=== PATIENT | female | born 1975 | race Caucasian/White ===

== ENCOUNTER 2017-03-19 09:57 | Emergency (ER) | payer BC ==
[2017-03-19] MEDS ORDERED: NS 0.9% 1000 ML* 1,000 ML IV SCH (10:15)
[2017-03-19 11:00] LABS: Hematocrit 39 % (35-47); Hemoglobin 13.1 g/dl (12.0-16.0); Mean Corpuscular HGB Conc 34 g/dl (31-36); Mean Corpuscular Hemoglobin 29 pg (27-31); Mean Corpuscular Volume 86 fL (80-97); Mean Platelet Volume 7 um3 (7.4-10.4); Red Blood Count 4.52 10^6/ul (4.0-5.4); Red Cell Distribution Width 15 % (10.5-15); White Blood Count 7.8 10^3/ul (3.5-10.8)
[2017-03-19] MEDS ORDERED: NS 0.9% 1000 ML* 2,000 ML IV ONE (11:13)
[2017-03-19 11:17] LABS: ALT 18 U/L (7-52); Albumin 3.8 g/dL (3.2-5.2); Alkaline Phosphatase 56 U/L (34-104); BUN/Creatinine Ratio 15.1 (8-20); Blood Urea Nitrogen 14 mg/dL (6-24); C Reactive Protein 5.12 mg/L (< 5.00); CO2 Carbon Dioxide 27 mmol/L (22-32); Calcium 9.1 mg/dL (8.6-10.3); Chloride 103 mmol/L (101-111); EGFR African American 84.6 (>60); EGFR Non-African American 65.8 (>60); Globulin 3.3 g/dL (2-4); Glucose 90 mg/dL (70-100); Lipase 13 U/L (11.0-82.0); Sodium 135 mmol/L (133-145); Total Protein 7.1 g/dL (6.4-8.9)
[2017-03-19 11:24] LABS: AST 19 U/L (13-39); Anion Gap 5 mmol/L (2-11); Potassium 4.6 mmol/L (3.5-5.0)
--- NOTE | 2017-03-19 13:03 | RAD ---
HISTORY: Excessive vaginal bleeding COMPARISONS: January 11, 2014 TECHNIQUE: Multiple transverse and longitudinal ultrasound images were obtained of the pelvis using grayscale and color Doppler imaging using the endovaginal transducer. FINDINGS: UTERUS: The uterus measures 8.8 x 3.2 x 4.4 cm. There is a small fundal fibroid of the posterior body measuring 1.3 x 1 x 0.9 ENDOMETRIUM: The endometrial stripe is smooth. The endometrium measures 0.5 cm in thickness. CUL-DE-SAC: There is no free fluid within the cul-de-sac. RIGHT OVARY: The right ovary measures 2.3 x 0.7 x 1.6 cm. The right ovary is unremarkable LEFT OVARY: The left ovary measures 2.7 x 1.2 x 1.7 cm. The left ovary is unremarkable. BLADDER: The visualized bladder is unremarkable. IMPRESSION: SMALL FUNDAL FIBROID. OTHERWISE UNREMARKABLE ULTRASOUND OF THE PELVIS
[2017-03-19 13:13] LABS: Urine Bacteria Absent (Absent); Urine Bilirubin Negative (Negative); Urine Glucose Negative (Negative); Urine Nitrite Negative (Negative)
--- NOTE | 2017-03-19 16:03 | ED ---
Tyron Santoyo Claudia, scribed for Mark Galindo MD on 03/19/17 at 1103 . GI/ HPI - HPI Summary HPI Summary: 41 year old female presents to the ED with vaginal bleeding. Pt notes in November she had a DVT and has been on xarelto since and also stopped taking control pills at that time. Pt notes 3 weeks ago she had severe bleeding lasting for 10 days and then it stopped. Then she began having bleeding again 2 days ago and today she woke up with extremely heavy vaginal bleeding and note she is going though 1 tampon and 2 pads an hour. She describes the vaginal bleeding as bright red with "lining".Pt notes significant suprapubic pain/ pressure (6/10) and notes hydrocodone is not alleviating the pain. She notes fatigue, nausea and dizziness. Pt notes she is also on beta-blockers. Pt also notes PMHx of patrica-globulin anemia and receives IGG/IGM infusions. Pt notes that she called her PCP Dr. Gonzales whom recommended she call OBGYN and she spoke with Dr. Coe office this am whom told her to come to the ED. PSHx: Cholecystectomy - History of Current Complaint Chief Complaint: EDVaginalBleeding Time Seen by Provider: 03/19/17 10:50 Stated Complaint: VAG BLEEDING Hx Obtained From: Patient Onset/Duration: Worse Since - this am Timing: Constant Vaginal Bleeding Description: Bright Red Pain Intensity: 6 Location of Pain: Suprapubic Associated Signs and Symptoms: Positive: Dizziness, Nausea Additional Signs & Symptoms: Positive: Vaginal Bleeding - Allergy/Home Medications Allergies/Adverse Reactions: Allergies Allergy/AdvReac Type Severity Reaction Status Date / Time Hydromorphone [From Dilaudid] Allergy Intermediate Itching Verified 01/11/14 10: 32 Cefdinir Allergy Hallucinati Verified 03/19/17 12:49 ons Cyclobenzaprine Allergy Rash Verified 03/19/17 12:49 [From Flexeril] Penicillins AdvReac Intermediate Yeast Verified 01/11/14 10:32 infection Bees Allergy Severe Anaphylatic Uncoded 01/08/14 16:50 Shock Jelly fish Allergy Severe Airway Uncoded 01/08/14 16:50 Obstruction PMH/Surg Hx/FS Hx/Imm Hx Previously Healthy: Yes Endocrine/Hematology History: Denies: Hx Diabetes, Hx Thyroid Disease Cardiovascular History: Denies: Hx Hypertension Respiratory History: Reports: Hx Asthma Denies: Hx Chronic Obstructive Pulmonary Disease (COPD) GI History: Denies: Hx Ulcer - Surgical History Surgery Procedure, Year, and Place: gall bladder; tonsillectomy; Infectious Disease History: Denies: Hx Hepatitis, Hx Human Immunodeficiency Virus (HIV), Traveled Outside the [place] in Last 30 Days - Family History Family History: NO FHX OF BREAST CA - Social History Occupation: Employed Full-time Lives: Alone Alcohol Use: Occasionally Substance Use Type: Reports: None Hx Tobacco Use: No Review of Systems Positive: Fatigue Eyes: Negative ENT: Negative Cardiovascular: Negative Respiratory: Negative Positive: Nausea Positive: other - vaginal bleeding Musculoskeletal: Negative Skin: Negative Neurological: Other - dizziness Psychological: Normal All Other Systems Reviewed And Are Negative: Yes Physical Exam Triage Information Reviewed: Yes Vital Signs On Initial Exam: Initial Vitals Temp Pulse Resp Pulse Ox 97.8 F 61 20 100 03/19/17 10:00 03/19/17 10:00 03/19/17 10:00 03/19/17 10:00 Vital Signs Reviewed: Yes Appearance: Positive: Well-Appearing, No Pain Distress - no acute distress Skin: Positive: Warm, Skin Color Reflects Adequate Perfusion, Dry Head/Face: Positive: Normal Head/Face Inspection Eyes: Positive: EOMI, RACHEL ENT: Positive: Normal ENT inspection Neck: Positive: Supple, Nontender Respiratory/Lung Sounds: Positive: Clear to Auscultation, Breath Sounds Present Cardiovascular: Positive: RRR Abdomen Description: Positive: Soft. Negative: Nontender - suprapubic tenderness Musculoskeletal: Positive: Normal, Strength/ROM Intact Neurological: Positive: Normal, Sensory/Motor Intact, Alert, Oriented to Person Place, Time Diagnostics - Vital Signs Vital Signs Temp Pulse Resp Pulse Ox 03/19/17 10:00 97.8 F 61 20 100 - Laboratory Lab Results: Lab Results 03/19/17 03/19/17 03/19/17 Range/Units 10:50 10:50 10:50 WBC 7.8 (3.5-10.8) 10^3/ul RBC 4.52 (4.0-5.4) 10^6/ul Hgb 13.1 (12.0-16.0) g/dl Hct 39 (35-47) % MCV 86 (80-97) fL MCH 29 (27-31) pg MCHC 34 (31-36) g/dl RDW 15 (10.5-15) % Plt Count 360 (150-450) 10^3/ul MPV 7 L (7.4-10.4) um3 Neut % (Auto) 52.1 (38-83) % Lymph % (Auto) 33.1 (25-47) % [place] % (Auto) 11.0 H (1-9) % Eos % (Auto) 2.5 (0-6) % Baso % (Auto) 1.3 (0-2) % Absolute Neuts (auto) 4.1 (1.5-7.7) 10^3/ul Absolute Lymphs (auto) 2.6 (1.0-4.8) 10^3/ul Absolute Monos (auto) 0.9 H (0-0.8) 10^3/ul Absolute Eos (auto) 0.2 (0-0.6) 10^3/ul Absolute Basos (auto) 0.1 (0-0.2) 10^3/ul Absolute Nucleated RBC 0 10^3/ul Nucleated RBC % 0 INR (Anticoag Therapy) 1.20 H (0.89-1.11) APTT 34.9 (26.0-36.3) seconds Sodium 135 (133-145) mmol/L Potassium 4.6 (3.5-5.0) mmol/L Chloride 103 (101-111) mmol/L Carbon Dioxide 27 (22-32) mmol/L Anion Gap 5 (2-11) mmol/L BUN 14 (6-24) mg/dL Creatinine 0.93 (0.51-0.95) mg/dL Est GFR ( Amer) 84.6 (>60) Est GFR (Non-Af Amer) 65.8 (>60) BUN/Creatinine Ratio 15.1 (8-20) Glucose 90 (70-100) mg/dL Lactic Acid (0.5-2.0) mmol/L Calcium 9.1 (8.6-10.3) mg/dL Total Bilirubin 0.50 (0.2-1.0) mg/dL AST 19 (13-39) U/L ALT 18 (7-52) U/L Alkaline Phosphatase 56 (34-104) U/L C-Reactive Protein 5.12 H (< 5.00) mg/L Total Protein 7.1 (6.4-8.9) g/dL Albumin 3.8 (3.2-5.2) g/dL Globulin 3.3 (2-4) g/dL Albumin/Globulin Ratio 1.2 (1-3) Lipase 13 (11.0-82.0) U/L Beta HCG, Quant < 0.60 mIU/mL Urine Color Urine Appearance Urine pH (5-9) Ur Specific [place] (1.010-1.030) Urine Protein (Negative) Urine Ketones (Negative) Urine Blood (Negative) Urine Nitrate (Negative) Urine Bilirubin (Negative) Urine Urobilinogen (Negative) Ur Leukocyte Esterase (Negative) Urine WBC (Auto) (Absent) Urine RBC (Auto) (Absent) Ur Squamous Epith Cells (Absent) Urine Bacteria (Absent) Urine Glucose (Negative) 03/19/17 03/19/17 Range/Units 10:50 12:45 WBC (3.5-10.8) 10^3/ul RBC (4.0-5.4) 10^6/ul Hgb (12.0-16.0) g/dl Hct (35-47) % MCV (80-97) fL MCH (27-31) pg MCHC (31-36) g/dl RDW (10.5-15) % Plt Count (150-450) 10^3/ul MPV (7.4-10.4) um3 Neut % (Auto) (38-83) % Lymph % (Auto) (25-47) % [place] % (Auto) (1-9) % Eos % (Auto) (0-6) % Baso % (Auto) (0-2) % Absolute Neuts (auto) (1.5-7.7) 10^3/ul Absolute Lymphs (auto) (1.0-4.8) 10^3/ul Absolute Monos (auto) (0-0.8) 10^3/ul Absolute Eos (auto) (0-0.6) 10^3/ul Absolute Basos (auto) (0-0.2) 10^3/ul Absolute Nucleated RBC 10^3/ul Nucleated RBC % INR (Anticoag Therapy) (0.89-1.11) APTT (26.0-36.3) seconds Sodium (133-145) mmol/L Potassium (3.5-5.0) mmol/L Chloride (101-111) mmol/L Carbon Dioxide (22-32) mmol/L Anion Gap (2-11) mmol/L BUN (6-24) mg/dL Creatinine (0.51-0.95) mg/dL Est GFR ( Amer) (>60) Est GFR (Non-Af Amer) (>60) BUN/Creatinine Ratio (8-20) Glucose (70-100) mg/dL Lactic Acid 1.0 (0.5-2.0) mmol/L Calcium (8.6-10.3) mg/dL Total Bilirubin (0.2-1.0) mg/dL AST (13-39) U/L ALT (7-52) U/L Alkaline Phosphatase (34-104) U/L C-Reactive Protein (< 5.00) mg/L Total Protein (6.4-8.9) g/dL Albumin (3.2-5.2) g/dL Globulin (2-4) g/dL Albumin/Globulin Ratio (1-3) Lipase (11.0-82.0) U/L Beta HCG, Quant mIU/mL Urine Color Yellow Urine Appearance Clear Urine pH 6.0 (5-9) Ur Specific [place] 1.008 L (1.010-1.030) Urine Protein Negative (Negative) Urine Ketones Negative (Negative) Urine Blood 3+ H (Negative) Urine Nitrate Negative (Negative) Urine Bilirubin Negative (Negative) Urine Urobilinogen Negative (Negative) Ur Leukocyte Esterase Negative (Negative) Urine WBC (Auto) Absent (Absent) Urine RBC (Auto) 3+(>10/hpf) H (Absent) Ur Squamous Epith Cells Present H (Absent) Urine Bacteria Absent (Absent) Urine Glucose Negative (Negative) Result Diagrams: 03/19/17 10:50 03/19/17 10:50 Lab Statement: Any lab studies that have been ordered have been reviewed, and results considered in the medical decision making process. - Ultrasound No standard instances Ultrasound Interpretation: Positive (See Comments) - PELVIC US: SMALL FUNDAL FIBROID. OTHERWISE UNREMARKABLE ULTRASOUND OF THE PELVIS Ultrasound Interpretation Completed By: Radiologist ESTRELLA Course/Dx - Course Course Of Treatment: NO CRITICAL CARE TIME. Assessment/Plan: DISCUSSED WITH DR CONNELL. VSS IN ED. DISCUSSED RESULTS WITH PATIENT. BED REST AT HOME. RECHECK CBC 03/20/17 WITH RESULTS TO [facility]/ DR GONZALEZ. F/U WITH [facility]; RETURN TO ED IF WORSE. DISCHARGE HOME STABLE. - Diagnoses Provider Diagnoses: DUB (dysfunctional uterine bleeding) - Physician Notifications Discussed Care Of Patient With: DISCUSSED CARE OF PT WITH DR. CONNELL WHO RECOMMENDS PELVIC US. Time Discussed With Above Provider: 12:03 Discharge - Discharge Plan Condition: Stable Disposition: HOME Patient Education Materials: Dysfunctional Uterine Bleeding (ED) Referrals: [facility] [Provider Group] Chito Tiwari MD [Primary Care Provider] - Machelle Gonzalez MD [Medical Doctor] - Additional Instructions: FOLLOW UP WITH [facility]. RETURN TO THE EMERGENCY DEPARTMENT FOR ANY WORSENING OF YOUR CONDITION; EXCESSIVE BLEEDING, YOU FEEL LIKE PASSING OUT OR QUESTIONS OR CONCERNS. The documentation as recorded by the Tyron kaur Claudia accurately reflects the service I personally performed and the decisions made by me, Mark Galindo MD.
[2017-03-19 16:18] VITALS: BP 120/80
== END 2017-03-19 16:17 | disposition home or self-care (01) ==
LOC: ED 09:57
DX: N93.8 Other specified abnormal uterine and vaginal bleeding (principal); Z88.5 Allergy status to narcotic agent; Z88.0 Allergy status to penicillin
CPT/HCPCS: 36415; 76856; 80053; 81003; 81015; 83605; 83690; 84702; 85025; 85610; 85730; 86140; 96360; 96361; 99282